=== PATIENT | male | born 1990 | race Hispanic/Latino ===

== ENCOUNTER 2018-07-01 20:26 | Emergency (ER) | payer OTHER ==
[2018-07-01] MEDS ORDERED: ACETAMINOPHEN EXTRA STRENGTH 500 MG TABLET ONE (20:47)
[2018-07-01] MEDS ORDERED: ONDANSETRON ODT 4 MG TAB ONE (20:58)
== END 2018-07-01 23:41 | disposition home or self-care (01) ==
LOC: EDH 20:26
DX: J06.9 Acute upper respiratory infection, unspecified (principal); R50.9 Fever, unspecified; Z87.891 Personal history of nicotine dependence
CPT/HCPCS: 87804

== ENCOUNTER 2022-06-08 11:38 | Emergency (ER) | payer BC, OTHER ==
[~2022-06-08] VITALS: Ht 180.3 cm; Wt 129.3 kg
[2022-06-08 12:34] LABS: BASOPHILS % (AUTO) 0.4 % (0.0-5.0); EOSINOPHILS % (AUTO) 0.8 % (0.0-8.0); HEMATOCRIT 40.4 % (42-54); LYMPHOCYTES % (AUTO) 25.6 % (21.0-51.0); MEAN CORPUSCULAR HEMOGLOBIN 26.5 pg (27.0-33.0); MEAN CORPUSCULAR HGB CONC 33.2 g/dL (32.0-36.0); MEAN CORPUSCULAR VOLUME 79.8 fL (79-99); MONOCYTES % (AUTO) 5.9 % (3.0-13.0); NEUTROPHILS % (AUTO) 66.9 % (40.0-77.0); PLATELET COUNT (AUTO) 282 K/uL (130-400); RED BLOOD CELL COUNT(AUTO) 5.06 MIL/uL (4.50-6.20); RED CELL DISTRIBUTION WIDTH 13.2 % (11.0-15.5); WHITE BLOOD COUNT (AUTO) 10.7 K/uL (4.8-10.8)
[2022-06-08 12:45] LABS: CREATININE 0.8 mg/dL (0.5-1.5); POTASSIUM 4.2 mmol/L (3.5-5.1)
[2022-06-08 12:49] LABS: ALBUMIN 3.8 g/dL (3.5-5.0); TOTAL PROTEIN, SERUM 7.3 g/dL (6.0-8.3)
[2022-06-08] MEDS ORDERED: CYCL10TA16 PO (13:17)
[2022-06-08] MEDS ORDERED: IBUP-2070 PO (13:17)
[2022-06-08] MEDS ORDERED: CYCLOBENZAPRINE HCL 10 MG TABLET PO ONE (13:30)
[2022-06-08] MEDS ORDERED: KETOROLAC 60 MG VIAL (30MG/ML) IM ONE (13:30)
[2022-06-08 13:48] VITALS: BP 124/78
== END 2022-06-08 13:59 | disposition home or self-care (01) ==
LOC: EDH 11:38
DX: M94.0 Chondrocostal junction syndrome [Tietze] (principal); R07.89 Other chest pain; G40.909 Epilepsy, unspecified, not intractable, without status epilepticus; Z79.899 Other long term (current) drug therapy
CPT/HCPCS: 99284; 71045; 84484; 80053; 85025; 36415; 96372; 93005 ×2; J1885

== ENCOUNTER → 2023-06-11 | Emergency (ER) | payer BC, OTHER ==
[~2023-06-11] VITALS: Ht 180.3 cm; Wt 158.8 kg
[~2023-06-11] MED LIST: CYCL10TA16 PO; IBUP-2070 PO; IBUPROFEN 800 MG TAB PO ONE
[2023-06-11 19:44] VITALS: BP 151/66; PULSE 120; RESP 20
== END ==
LOC: EDH 19:43
DX: S93.491A Sprain of other ligament of right ankle, initial encounter (principal); S40.811A Abrasion of right upper arm, initial encounter; Z79.899 Other long term (current) drug therapy; W01.0XXA Fall on same level from slipping, tripping and stumbling without subsequent striking against object, initial encounter; Y93.01 Activity, walking, marching and hiking; Y92.89 Other specified places as the place of occurrence of the external cause; Y99.8 Other external cause status
CPT/HCPCS: 73610